=== PATIENT | male | born 1955 | race Asian ===

== ENCOUNTER 2016-12-26 09:48 | Emergency (ER) | payer OTHER ==
[~2016-12-26] VITALS: Ht 167.6 cm; Wt 74.8 kg
[2016-12-26 09:50] VITALS: BP 166/61; PULSE 97; RESP 16; TEMP 97.8; O2SAT 97
--- NOTE | 2016-12-26 09:50 | NUR ---
Placed in room 5. 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 To gown for exam. Side rails up. Report given to Solitario ORTIZ.
--- NOTE | 2016-12-26 09:55 | NUR ---
Pt BIB police. Per officer, pt was arrested at home due to "disturbance caused by pt". Pt states he had difficulty breathing since incident, states dizziness and sharp chest pain / during incident. Pt denies loss of consciousness, denies any mechanism of injury or fall. Pt denies any other complaints. Addendum: 12/26/16 at 1242 by SDEDEJ Per officer at bedside, pt was arrested for "domestic violence to " at time of incident prior to ER visit.
--- NOTE | 2016-12-26 09:56 | NUR ---
ER Dr. Mccray at bedside examining patient.
[2016-12-26] MEDS ORDERED: ASPIRIN 81 MG TAB.CHEW PO ONE (10:00)
[2016-12-26] MEDS ORDERED: NITROGLYCERIN 1 INCH (GM) OINT. TP ONE (10:00)
[2016-12-26 10:24] LABS: BASOPHILS # (AUTO) 0.1 K/uL (0.0-0.2); BASOPHILS % (AUTO) 0.8 % (0.0-2.0); EOSINOPHILS # (AUTO) 0.1 K/uL (0.0-0.4); EOSINOPHILS % (AUTO) 0.5 % (0.0-4.0); HEMATOCRIT 44.1 % (36-54); HEMOGLOBIN 14.8 g/dL (14.0-18.0); LYMPHOCYTES # (AUTO) 2.1 K/uL (1.0-5.5); LYMPHOCYTES % (AUTO) 16.1 % (20.5-51.5); MEAN CORPUSCULAR HEMOGLOBIN 30 pg (27-31); MEAN CORPUSCULAR HGB CONC 34 % (32-36); MEAN CORPUSCULAR VOLUME 89 fL (79.0-98.0); MONOCYTES # (AUTO) 0.9 K/uL (0.0-1.0); MONOCYTES % (AUTO) 7.2 % (1.7-9.3); NEUTROPHILS % (AUTO) 75.4 % (40.0-70.0); PLATELET COUNT (AUTO) 303 K/uL (130-430); RED BLOOD CELL COUNT(AUTO) 4.97 MIL/uL (4.2-6.2); RED CELL DISTRIBUTION WIDTH 11.5 % (9.0-15.0); WHITE BLOOD COUNT (AUTO) 13.2 K/uL (4.8-10.8)
[2016-12-26 10:24] LABS: BILIRUBIN,URINE NEGATIVE (NEGATIVE); BLOOD, URINE NEGATIVE (NEGATIVE); CLARITY/URINE CLEAR (CLEAR); COLOR,URINE YELLOW (YELLOW); GLUCOSE,URINE NEGATIVE (NEGATIVE); KETONES,URINE NEGATIVE (NEGATIVE); LEUKOCYTE ESTERASE ,URINE NEGATIVE (NEGATIVE); NITRITE, URINE NEGATIVE (NEGATIVE); PH,URINE 5.5 (5.0-8.0); PROTEIN URINE 1+ (NEGATIVE); UROBILINOGEN,URINE 0.2 (0.2-1.0)
[2016-12-26 10:31] LABS: BACTERIA,URINE FEW /HPF (None Seen); RBC,URINE 0-3 /HPF (0-3); WBC,URINE 0-3 /HPF (0-3)
[2016-12-26 10:32] LABS: HYALINE CASTS, URINE 0-10 /LPF (None Seen)
[2016-12-26 10:38] LABS: CALCIUM 9.1 mg/dL (8.4-11.0); CREATININE 1.16 mg/dL (0.55-1.30)
[2016-12-26 10:42] LABS: TOTAL BILIRUBIN 0.5 mg/dL (0.0-1.0)
[2016-12-26 10:44] LABS: PROTHROMBIN TIME 10.9 SECS (9.5-12.5)
--- NOTE | 2016-12-26 11:50 | NUR ---
Pt stable, no signs of distress noted.
--- NOTE | 2016-12-26 13:17 | NUR ---
pt stable, no signs of distress noted. truant officer at bedside
--- NOTE | 2016-12-26 13:34 | NUR ---
Patient to be transferred to [facility]. Is being transferred due to higher level of care. Receiving facility has accepting physician and available space. ER physician has signed transfer form. Patient has agreed to transfer and signed form. Patient belongings inventoried and will be sent with patient. Copy of nursing notes, lab reports, EKG, and Physicians Orders to be sent with patient. Report called to DIANA Mejia at receiving facility. Receiving physician is Dr. Pickard. [facility] ambulance has been called for transfer. ETA is 1355. Addendum: 12/26/16 at 1343 by SDEDEJ number called for [facility]:
[2016-12-26 13:50] VITALS: BP 113/59; PULSE 83; RESP 19; TEMP 99.2; O2SAT 96
== END 2016-12-26 13:50 | disposition short-term general hospital (02) ==
LOC: SED 09:50
DX: R07.89 Other chest pain (principal); Z88.8 Allergy status to other drugs, medicaments and biological substances
CPT/HCPCS: 36415; 71010; 80053; 81000-TC; 83880; 84484; 85025; 85610-TC; 93005; 99285